=== PATIENT | female | born 2000 | race Caucasian/White ===

== ENCOUNTER 2023-12-03 09:46 | Emergency (ER) | payer OTHER ==
[~2023-12-03] VITALS: Ht 167.6 cm; Wt 68.2 kg
[2023-12-03 09:55] VITALS: TEMP 97.5
[2023-12-03] MEDS ORDERED: Ketorolac 60 MG/2 ML VIAL IM ONE (10:15)
[2023-12-03] MEDS ORDERED: MOTRIN 800800 MG/TAB PO (11:03)
[2023-12-03] MEDS ORDERED: FLEXERIL 1010 MG/TAB PO (11:03)
[2023-12-03] MEDS ORDERED: NORCO 325 MG-51 TAB PO (11:03)
[2023-12-03 11:12] VITALS: BP 115/71; PULSE 68
== END 2023-12-03 11:13 | disposition home or self-care (01) ==
LOC: COL.ER 09:46
DX: M54.50 Low back pain, unspecified (principal); X50.1XXA Overexertion from prolonged static or awkward postures, initial encounter; Y93.F2 Activity, caregiving, lifting
CPT/HCPCS: J1885